=== PATIENT | female | born 1960 | race Caucasian/White ===

== ENCOUNTER 2017-11-17 06:14 | Day surgery (SDC) | payer OTHER ==
[2017-11-17] MEDS ORDERED: FENTAnyl 50 MCG/ML VIAL (08:21)
[2017-11-17] MEDS ORDERED: MIDAZOLAM 1 MG/ML 2 ML INJ ×2 (08:21)
== END 2017-11-17 11:31 | disposition home or self-care (01) ==
LOC: GIL 06:14
DX: Z12.11 Encounter for screening for malignant neoplasm of colon (principal); K57.90 Diverticulosis of intestine, part unspecified, without perforation or abscess without bleeding; K64.8 Other hemorrhoids
CPT/HCPCS: 45378